=== PATIENT | male | born 1990 | race Hispanic/Latino ===

== ENCOUNTER 2020-04-03 21:21 | Emergency (ER) | payer SELFPAY ==
[2020-04-03] MEDS ORDERED: LIDOCAINE HCL 1% 20 ML VIAL ONE (21:44)
== END 2020-04-03 23:01 | disposition home or self-care (01) ==
LOC: EDH 21:21
DX: S61.215A Laceration without foreign body of left ring finger without damage to nail, initial encounter (principal); Z72.0 Tobacco use; W45.8XXA Other foreign body or object entering through skin, initial encounter; Y93.89 Activity, other specified; Y92.098 Other place in other non-institutional residence as the place of occurrence of the external cause; Y99.8 Other external cause status
CPT/HCPCS: 12001; 73140

== ENCOUNTER 2020-04-17 22:09 | Emergency (ER) | payer SELFPAY | END 2020-04-17 22:41 | disposition home or self-care (01) | LOC: EDH 22:09 | DX: S61.215D Laceration without foreign body of left ring finger without damage to nail, subsequent encounter (principal); X58.XXXD Exposure to other specified factors, subsequent encounter; Z72.0 Tobacco use ==